=== PATIENT | female | born 1995 | race Caucasian/White ===

== ENCOUNTER 2022-09-03 08:21 | Outpatient (CLI) | payer BC, SELFPAY ==
[2022-09-03 10:48] LABS: Albumin* 4.3 g/dL (3.3-5.0); Chloride* 109 mmol/L (96-114)
[2022-09-03 10:49] LABS: Potassium* 4.1 mmol/L (3.6-5.1); Sodium* 140 mmol/L (135-149)
[2022-09-03 10:51] LABS: Alkaline Phosphatase* 74 U/L (40-150); Aspartate Amino Transferase* 18 U/L (12-35); Bilirubin Total* 0.4 mg/dL (0.1-1.5); Blood Urea Nitrogen* 16 mg/dL (5-24); Carbon Dioxide* 25 mmol/L (20-32); Cholesterol* 206 mg/dL (90-199); Creatinine* 0.6 mg/dL (0.5-1.5); Estimated Glomerular Filt Rate 128 ml/min; Glucose* 92 mg/dL (60-115)
[2022-09-03 10:52] LABS: Alanine Aminotransferase* 13 U/L (4-35); Calcium* 9.1 mg/dL (8.4-10.6); HDL Cholesterol* 78 mg/dL (>=50); LDL Cholesterol Calculated 120 mg/dL (<100); Triglycerides* 39 mg/dL (40-149)
== END 2022-09-03 08:22 | disposition home or self-care (01) ==
PROVIDERS: PCP Internal Medicine; Visit Provider Internal Medicine
DX: E78.5 Hyperlipidemia, unspecified (principal)
CPT/HCPCS: 80053; 80061

== ENCOUNTER 2023-02-08 08:52 | Outpatient (CLI) | payer OTHER, SELFPAY | END 2023-02-08 08:53 | disposition home or self-care (01) | PROVIDERS: PCP Internal Medicine; Visit Provider Registered Nurse | DX: Z01.419 Encounter for gynecological examination (general) (routine) without abnormal findings (principal); E78.5 Hyperlipidemia, unspecified; Z83.49 Family history of other endocrine, nutritional and metabolic diseases | CPT/HCPCS: 84443 ==

== ENCOUNTER 2024-02-15 10:28 | Outpatient (CLI) | payer OTHER, SELFPAY | END 2024-02-15 10:29 | disposition home or self-care (01) | PROVIDERS: PCP Internal Medicine; Visit Provider Registered Nurse | DX: Z01.419 Encounter for gynecological examination (general) (routine) without abnormal findings (principal); E78.5 Hyperlipidemia, unspecified; Z13.29 Encounter for screening for other suspected endocrine disorder; Z13.9 Encounter for screening, unspecified | CPT/HCPCS: 80061; 84443 ==

== ENCOUNTER 2025-02-21 08:59 | Outpatient (CLI) | payer OTHER, SELFPAY | END 2025-02-21 09:00 | disposition home or self-care (01) | PROVIDERS: PCP Internal Medicine; Visit Provider Registered Nurse | DX: Z00.00 Encounter for general adult medical examination without abnormal findings (principal); E78.5 Hyperlipidemia, unspecified; Z83.49 Family history of other endocrine, nutritional and metabolic diseases; Z13.1 Encounter for screening for diabetes mellitus | CPT/HCPCS: 80061; 82947; 84443 ==